=== PATIENT | male | born 1950 | race Caucasian/White ===

== ENCOUNTER 2017-05-16 11:41 | Day surgery (SDC) | payer MEDICARE, OTHER ==
[~2017-05-16] VITALS: Ht 188 cm; Wt 90.9 kg
[~2017-05-16 11:41] MED LIST: ACYC200; ACYC200 PO; Bactrim Ds Tab1 EACH PO; CIPR500 PO; Cleocin HCl300 MG PO; Cyclobenzaprine5 MG PO; HYDACE25S PR; HYDCOR2.5C PR; PRAHYD1AE TOP; PREG25 PO; SERT25; SERT50 PO; Ultram50 MG PO; [UNRECOGNIZED DRUG - OTHER]
== END 2017-05-16 12:56 | disposition home or self-care (01) ==
LOC: ORSCSDS 11:41
DX: Z12.11 Encounter for screening for malignant neoplasm of colon (principal); Z53.9 Procedure and treatment not carried out, unspecified reason
CPT/HCPCS: 93005; 93010; J7120

== ENCOUNTER → 2017-09-04 | Outpatient (CLI) | payer MEDICARE, OTHER | LOC: OLS 20:20 → LAB SHORT 20:20 | PROVIDERS: Hospitalist | DX: E55.9 Vitamin D deficiency, unspecified (principal); E50.9 Vitamin A deficiency, unspecified; K90.9 Intestinal malabsorption, unspecified | CPT/HCPCS: 82710 ==

== ENCOUNTER 2018-06-24 10:01 | Day surgery (SDC) | payer MEDICARE, OTHER ==
[~2018-06-24 10:01] MED LIST changes: +ELIQUIS5 MG PO; +IBU800 MG PO; +Natural Vita400 UNIT PO; +SERT100 PO; +TAMS.4ER PO; +VITAMIN D350000 UNIT PO; +[UNRECOGNIZED DRUG - OTHER] PO
--- NOTE | 2018-06-24 11:50 | NUR ---
06/24/18 1150 Nikkie Blankenship USED WITH IRRIGATION.
== END 2018-06-24 12:53 | disposition home or self-care (01) ==
LOC: ORSCSDS 10:01
PROVIDERS: Internal Medicine Gastroenterology
PROC: 0DBE8ZX Excision of Large Intestine, Via Natural or Artificial Opening Endoscopic, Diagnostic (ICD-10-PCS; principal; 2018-06-24 11:15)
DX: R19.7 Diarrhea, unspecified (principal); K64.8 Other hemorrhoids; Z79.82 Long term (current) use of aspirin; Z79.899 Other long term (current) drug therapy
CPT/HCPCS: 88305; J1980; J7120

== ENCOUNTER → 2018-09-04 | Outpatient (CLI) | payer MEDICARE, OTHER ==
[2018-09-05 12:12] LABS: Adenovirus F 40/41 Not Detected (NOT DETECT); Astrovirus Not Detected (NOT DETECT); Campylobacter Sp Not Detected (NOT DETECT); Cryptosporidium Not Detected (NOT DETECT); Cyclospora Cayetanensis Not Detected (NOT DETECT); E. Coli O157 Not Detected (NOT DETECT); Entamoeba Histolytica Not Detected (NOT DETECT); Enteroaggregative E. coli-EAEC Not Detected (NOT DETECT); Enteropathogenic E. coli-EPEC Not Detected (NOT DETECT); Enterotoxigenic E. coli-ETEC Not Detected (NOT DETECT); Giardia Lamblia Not Detected (NOT DETECT); Norovirus GI/GII Not Detected (NOT DETECT); Plesiomonas Shigelloides Not Detected (NOT DETECT); Rotavirus A Not Detected (NOT DETECT); Salmonella Sp Not Detected (NOT DETECT); Sapovirus Not Detected (NOT DETECT); Shiga Toxin-prod E. coli-STEC Not Detected (NOT DETECT); Shigella/Enteroin E. coli-EIEC Not Detected (NOT DETECT); Vibrio Cholerae Not Detected (NOT DETECT); Vibrio Sp Not Detected (NOT DETECT); Yersinia Enterocolitica Not Detected (NOT DETECT)
== END | disposition home or self-care (01) ==
LOC: LAB 06:45 → LAB SHORT 06:45
PROVIDERS: Hospitalist
DX: Z13.6 Encounter for screening for cardiovascular disorders (principal); K52.9 Noninfective gastroenteritis and colitis, unspecified; E55.9 Vitamin D deficiency, unspecified; E50.9 Vitamin A deficiency, unspecified; D50.9 Iron deficiency anemia, unspecified; Z91.89 Other specified personal risk factors, not elsewhere classified
CPT/HCPCS: 87507

== ENCOUNTER 2018-11-13 06:50 | Emergency (ER) | payer MEDICARE, OTHER ==
[~2018-11-13] VITALS: Ht 188 cm; Wt 93.0 kg
[2018-11-13] MEDS ORDERED: Crutch1 EACH MISC (11:09)
== END 2018-11-13 07:50 | disposition home or self-care (01) ==
LOC: ER 06:50
DX: S93.401A Sprain of unspecified ligament of right ankle, initial encounter (principal); S92.001A Unspecified fracture of right calcaneus, initial encounter for closed fracture; X58.XXXA Exposure to other specified factors, initial encounter
CPT/HCPCS: 29515; 73610; 73700; 99283-25